=== PATIENT | female | born 1935 | race Caucasian/White ===

== ENCOUNTER 2022-01-25 18:22 | Inpatient (IN) | payer MEDICARE, BC ==
[2022-01-25 19:45] LABS: #Basophils 0.1 10x3/uL (0.0-0.2); #Eosinphils 0.3 10x3/uL (0.0-0.5); #Neutrophils 7.5 10x3/uL (1.5-8.4); %Basophils 0.9 % (0.0-2.0); %Eosinophils 2.7 % (0.0-6.0); %Lymphocytes 20.8 % (18.0-47.0); %Monocytes 9.1 % (0.0-10.0); Bilirubin Neg (Negative); Blood, Urine Negative (Negative); Clarity Clear (Clear); Glucose, Urine (Dipstick) Normal (Negative); Hemoglobin 13.5 g/dL (12.0-15.5); Ketone, Urine Negative (Negative); Leukocyte 100 (Negative); Mean Corpuscular HGB CONC 32.6 g/dL (32.0-36.0); Mean Corpuscular Hemoglobin 29.7 pg (27.0-33.0); Mean Corpuscular Volume 91.2 fl (81.6-98.3); Mean Platelet Volume 10.6 fl (7.4-10.4); Nitrite Negative (Negative); Platelet Count 288 10x3/uL (150-450); Protein, Urine (Dipstick) 15 mg/dl (Neg-Trace); RBC Distribution Width 13.2 % (11.5-14.5); Red Blood Cell (RBC) Count 4.54 10x6/uL (3.90-5.03); Urobilinogen Normal mg/dL (Less than 2); White Blood Cell (WBC) Count 11.4 10x3/uL (3.5-10.5)
[2022-01-25 19:51] LABS: Bacteria/HPF 3+ HPF (None Seen); RBC/HPF 0-3 HPF (0-3); Renal Epithelial 0-3 HPF (None Seen); Squamous Epithelial 0-3 HPF (0-3); WBC/HPF 21-50 HPF (0-3)
[2022-01-25 19:59] LABS: ALT (SGPT) 9 U/L (8-55); AST (SGOT) 14 U/L (5-34); Albumin 4.3 g/dL (3.4-4.8); Alkaline Phosphatase 73 U/L (40-110); Anion Gap 17 mmol/L (10-20); BUN (Urea Nitrogen) 50 mg/dL (9.8-20.1); Bilirubin, Total 0.3 mg/dL (0.2-1.2); Calc. Creatinine Clearance 0 mL/min (70-130); Calcium 9.9 mg/dL (7.8-10.44); Carbon Dioxide 21 mmol/L (23-31); Chloride 107 mmol/L (98-107); Estimated GFR 32; Globulin 3.4 g/dL (2.4-3.5); Glucose 138 mg/dL (83-110); Potassium 5.2 mmol/L (3.5-5.1); Protein, Total 7.7 g/dL (5.8-8.1); Sodium 140 mmol/L (136-145)
[2022-01-25] MEDS ORDERED: cefTRIAXone\\ROCEPHIN 1 GM VIAL ONE (20:47)
[2022-01-25] MEDS ORDERED: Senokot S 8.6-50 MG TAB PO PRN (21:40)
[2022-01-25] MEDS ORDERED: Ondansetron PF 4 MG/2 ML Vial IVP PRN (21:40)
[2022-01-25] MEDS ORDERED: Guaifenesin DM 100-10/5 ML UDCUP PO PRN (21:40)
[2022-01-25] MEDS ORDERED: Acetaminophen 325 MG TAB PO PRN (21:40)
[2022-01-25] MEDS ORDERED: Calcium Carbonate 500 MG ChewTAB PO PRN (21:40)
[2022-01-25] MEDS ORDERED: clonazePAM 0.5 MG TAB PO PRN (21:43)
[2022-01-25] MEDS ORDERED: Sodium Chloride 0.45% 500 ML IV SCH (21:45)
[2022-01-25 23:28] LABS: Troponin I 0.011 ng/mL (< 0.028)
[2022-01-26 02:51] LABS: Lactic Acid 0.9 mmol/L (0.5-2.2)
[2022-01-26 02:53] VITALS: BMI 30.2
[2022-01-26 04:49] LABS: #Basophils 0.1 10x3/uL (0.0-0.2); #Eosinphils 0.3 10x3/uL (0.0-0.5); #Monocytes 1.1 10x3/uL (0.0-1.1); #Neutrophils 5.7 10x3/uL (1.5-8.4); %Basophils 0.6 % (0.0-2.0); %Eosinophils 3.4 % (0.0-6.0); %Lymphocytes 27.8 % (18.0-47.0); %Monocytes 10.8 % (0.0-10.0); %Neutrophils 56.9 % (40.0-75.0); Hemoglobin 11.1 g/dL (12.0-15.5); Mean Corpuscular Hemoglobin 29.6 pg (27.0-33.0); Mean Corpuscular Volume 89.6 fl (81.6-98.3); Mean Platelet Volume 10.4 fl (7.4-10.4); Platelet Count 229 10x3/uL (150-450); RBC Distribution Width 13.2 % (11.5-14.5); Red Blood Cell (RBC) Count 3.75 10x6/uL (3.90-5.03)
[2022-01-26 05:02] LABS: Anion Gap 14 mmol/L (10-20); BUN (Urea Nitrogen) 46 mg/dL (9.8-20.1); Calc. Creatinine Clearance 40 mL/min (70-130); Calcium 9.2 mg/dL (7.8-10.44); Carbon Dioxide 20 mmol/L (23-31); Chloride 112 mmol/L (98-107); Estimated GFR 36; Glucose 119 mg/dL (83-110); Magnesium 1.6 mg/dL (1.6-2.6); Potassium 5.4 mmol/L (3.5-5.1); Sodium 141 mmol/L (136-145)
[2022-01-26] MEDS ORDERED: Levothyroxine Sodium 125 MCG TAB PO SCH (06:00)
[2022-01-26] MEDS: Alogliptin 25 MG TAB PO SCH (08:55)
[2022-01-26] MEDS: Famotidine 20 MG TAB PO SCH ×2 (08:55→20:50)
[2022-01-26] MEDS: Clopidogrel Bisulfate 75 MG TAB PO SCH (08:55)
[2022-01-26] MEDS: Escitalopram Oxalate 10 mg Tablet PO SCH (08:55)
[2022-01-26] MEDS: Aspirin 81 mg Enteric Coated Tablet PO SCH (08:55)
[2022-01-26] MEDS: Liothyronine Sodium 5 MCG TAB PO SCH (08:56)
[2022-01-26] MEDS: Amlodipine 10 MG TAB PO SCH (08:56)
[2022-01-26] MEDS: Heparin 5,000 UNITS/ML VIAL SC SCH ×2 (08:59→20:55)
[2022-01-26] MEDS ORDERED: Metoprolol Tartrate 25 MG TAB PO SCH (09:00)
[2022-01-26] MEDS ORDERED: Losartan Potassium 50 MG TAB PO SCH (09:00)
[2022-01-26] MEDS ORDERED: hydrALAZINE 20 MG/ML VIAL SLOW IVP PRN (13:38)
[2022-01-26] MEDS ORDERED: Sodium Chloride 0.9% 1,000 ML IV SCH (14:00)
[2022-01-26] MEDS ORDERED: Dextrose 5% in Water 1,000 ML IV PRN (14:05)
[2022-01-26] MEDS ORDERED: Insulin Regular 300 UNITS/3 ML VIAL SC PRN ×2 (14:05)
[2022-01-26] MEDS ORDERED: Dextrose 50% Abboject 50 ML SYRINGE SLOW IVP PRN (14:05)
[2022-01-26 16:25] LABS: Potassium 5.8 mmol/L (3.5-5.1)
[2022-01-26] MEDS ORDERED: LOKELMA 10 GM PACKET PO SCH (16:30)
[2022-01-26] MEDS: hydrALAZINE 25 MG TAB PO SCH ×2 (16:59→20:56)
[2022-01-26] MEDS ORDERED: Insulin Regular 300 UNITS/3 ML VIAL IVP SCH (17:00)
[2022-01-26] MEDS ORDERED: Dextrose 50% Abboject 50 ML SYRINGE SLOW IVP SCH (17:00)
[2022-01-26 20:11] LABS: Potassium 5.6 mmol/L (3.5-5.1)
[2022-01-26] MEDS: cefTRIAXone\\ROCEPHIN 1 GM in Sodium Chloride 0.9% 100 ML IVPB SCH (20:50)
[2022-01-26] MEDS: LOKELMA 10 GM PACKET PO SCH (20:50)
[2022-01-26] MEDS ORDERED: Enoxaparin Sodium 40 MG/0.4 ML SYRINGE SC SCH (21:00)
[2022-01-27 04:20] LABS: #Basophils 0.1 10x3/uL (0.0-0.2); #Eosinphils 0.4 10x3/uL (0.0-0.5); #Monocytes 0.8 10x3/uL (0.0-1.1); #Neutrophils 3.8 10x3/uL (1.5-8.4); %Basophils 0.8 % (0.0-2.0); %Eosinophils 4.8 % (0.0-6.0); %Lymphocytes 33.6 % (18.0-47.0); %Monocytes 10.9 % (0.0-10.0); %Neutrophils 49.4 % (40.0-75.0); Mean Corpuscular HGB CONC 32.7 g/dL (32.0-36.0); Mean Corpuscular Hemoglobin 29.5 pg (27.0-33.0); Mean Corpuscular Volume 90.1 fl (81.6-98.3); Mean Platelet Volume 10.6 fl (7.4-10.4); Platelet Count 225 10x3/uL (150-450); RBC Distribution Width 13.2 % (11.5-14.5); Red Blood Cell (RBC) Count 3.73 10x6/uL (3.90-5.03); White Blood Cell (WBC) Count 7.7 10x3/uL (3.5-10.5)
[2022-01-27 04:47] LABS: ALT (SGPT) 9 U/L (8-55); AST (SGOT) 13 U/L (5-34); Albumin 3.4 g/dL (3.4-4.8); Alkaline Phosphatase 54 U/L (40-110); Anion Gap 14 mmol/L (10-20); BUN (Urea Nitrogen) 42 mg/dL (9.8-20.1); Bilirubin, Total 0.2 mg/dL (0.2-1.2); Calc. Creatinine Clearance 36 mL/min (70-130); Calcium 8.8 mg/dL (7.8-10.44); Carbon Dioxide 21 mmol/L (23-31); Chloride 110 mmol/L (98-107); Estimated GFR 32; Globulin 2.8 g/dL (2.4-3.5); Glucose 110 mg/dL (83-110); Magnesium 1.5 mg/dL (1.6-2.6); Phosphorus 3.8 mg/dL (2.3-4.7); Protein, Total 6.2 g/dL (5.8-8.1); Sodium 140 mmol/L (136-145)
[2022-01-27] MEDS: Levothyroxine Sodium 112 MCG TAB PO SCH (05:31)
[2022-01-27] MEDS ORDERED: Magnesium Sulfate 4 GM in Sodium Chloride 0.9% 250 ML 250 ML IVPB ONE (07:19)
[2022-01-27] MEDS: Alogliptin 25 MG TAB PO SCH (08:50)
[2022-01-27] MEDS: Escitalopram Oxalate 10 mg Tablet PO SCH (08:50)
[2022-01-27] MEDS: Liothyronine Sodium 5 MCG TAB PO SCH (08:50)
[2022-01-27] MEDS: hydrALAZINE 25 MG TAB PO SCH ×3 (08:51→20:30)
[2022-01-27] MEDS: Magnesium 2 GM/50 ML(in water) 2 GM in Premix Bag 1 BAG IVPB SCH ×2 (08:51→12:40)
[2022-01-27] MEDS: Aspirin 81 mg Enteric Coated Tablet PO SCH (08:55)
[2022-01-27] MEDS: Clopidogrel Bisulfate 75 MG TAB PO SCH (08:56)
[2022-01-27] MEDS: Amlodipine 10 MG TAB PO SCH (08:56)
[2022-01-27] MEDS: LOKELMA 10 GM PACKET PO SCH (09:03)
[2022-01-27] MEDS: Heparin 5,000 UNITS/ML VIAL SC SCH ×2 (09:03→20:24)
[2022-01-27] MEDS: cefTRIAXone\\ROCEPHIN 1 GM in Sodium Chloride 0.9% 100 ML IVPB SCH (20:24)
[2022-01-27] MEDS ORDERED: Famotidine 20 MG TAB PO SCH (21:00)
[2022-01-28 04:46] LABS: #Basophils 0.1 10x3/uL (0.0-0.2); #Eosinphils 0.4 10x3/uL (0.0-0.5); #Monocytes 1.1 10x3/uL (0.0-1.1); #Neutrophils 5.4 10x3/uL (1.5-8.4); %Basophils 0.6 % (0.0-2.0); %Eosinophils 4.3 % (0.0-6.0); %Lymphocytes 22.3 % (18.0-47.0); %Neutrophils 60.5 % (40.0-75.0); Hemoglobin 10.6 g/dL (12.0-15.5); Mean Corpuscular HGB CONC 32.8 g/dL (32.0-36.0); Mean Corpuscular Hemoglobin 29.9 pg (27.0-33.0); Mean Corpuscular Volume 91.2 fl (81.6-98.3); Mean Platelet Volume 10.7 fl (7.4-10.4); Platelet Count 218 10x3/uL (150-450); RBC Distribution Width 13.1 % (11.5-14.5); Red Blood Cell (RBC) Count 3.54 10x6/uL (3.90-5.03); White Blood Cell (WBC) Count 8.8 10x3/uL (3.5-10.5)
[2022-01-28 04:53] LABS: ALT (SGPT) 9 U/L (8-55); AST (SGOT) 12 U/L (5-34); Albumin 3.2 g/dL (3.4-4.8); Alkaline Phosphatase 60 U/L (40-110); Anion Gap 14 mmol/L (10-20); BUN (Urea Nitrogen) 37 mg/dL (9.8-20.1); Bilirubin, Total 0.1 mg/dL (0.2-1.2); Calc. Creatinine Clearance 36 mL/min (70-130); Calcium 8.6 mg/dL (7.8-10.44); Carbon Dioxide 22 mmol/L (23-31); Chloride 110 mmol/L (98-107); Estimated GFR 32; Globulin 2.8 g/dL (2.4-3.5); Glucose 193 mg/dL (83-110); Magnesium 2.4 mg/dL (1.6-2.6); Potassium 4.6 mmol/L (3.5-5.1); Sodium 141 mmol/L (136-145)
[2022-01-28] MEDS: Levothyroxine Sodium 112 MCG TAB PO SCH (05:06)
[2022-01-28] MEDS: Escitalopram Oxalate 10 mg Tablet PO SCH (09:56)
[2022-01-28] MEDS: Alogliptin 25 MG TAB PO SCH (09:57)
[2022-01-28] MEDS: Clopidogrel Bisulfate 75 MG TAB PO SCH (09:57)
[2022-01-28] MEDS: hydrALAZINE 25 MG TAB PO SCH (09:58)
[2022-01-28] MEDS: Amlodipine 10 MG TAB PO SCH (09:58)
[2022-01-28] MEDS: Heparin 5,000 UNITS/ML VIAL SC SCH (10:07)
[2022-01-28] MEDS: Aspirin 81 mg Enteric Coated Tablet PO SCH (10:07)
[2022-01-28 11:54] VITALS: BP 175/79; TEMP 98.2
== END 2022-01-28 11:10 | disposition home health service (06) | DRG 690 ==
LOC: CSHERS 18:22 → CSHTELE 22:28 → OBSVTOIN 01-27 10:26
PROVIDERS: ADMIT Student in an Organized Health Care Education/Training Program; ATTEND Internal Medicine
DX: N39.0 Urinary tract infection, site not specified (principal); K50.90 Crohn's disease, unspecified, without complications; E87.2 Acidosis; N17.9 Acute kidney failure, unspecified; I13.0 Hypertensive heart and chronic kidney disease with heart failure and stage 1 through stage 4 chronic kidney disease, or unspecified chronic kidney disease; E78.5 Hyperlipidemia, unspecified; F41.9 Anxiety disorder, unspecified; E03.9 Hypothyroidism, unspecified; I25.10 Atherosclerotic heart disease of native coronary artery without angina pectoris; F32.A Depression, unspecified; R53.81 Other malaise; E87.5 Hyperkalemia; R25.1 Tremor, unspecified; N18.30 Chronic kidney disease, stage 3 unspecified; E11.22 Type 2 diabetes mellitus with diabetic chronic kidney disease; E11.65 Type 2 diabetes mellitus with hyperglycemia; E86.0 Dehydration; I50.9 Heart failure, unspecified; E66.9 Obesity, unspecified; D63.1 Anemia in chronic kidney disease; B96.20 Unspecified Escherichia coli [E. coli] as the cause of diseases classified elsewhere; G31.9 Degenerative disease of nervous system, unspecified; G70.00 Myasthenia gravis without (acute) exacerbation; Z20.822 Contact with and (suspected) exposure to COVID-19; Z88.5 Allergy status to narcotic agent; Z90.710 Acquired absence of both cervix and uterus; Z95.5 Presence of coronary angioplasty implant and graft; Z85.3 Personal history of malignant neoplasm of breast; Z88.1 Allergy status to other antibiotic agents; Z88.0 Allergy status to penicillin; Z88.8 Allergy status to other drugs, medicaments and biological substances; Z79.899 Other long term (current) drug therapy; Z79.82 Long term (current) use of aspirin; Z79.890 Hormone replacement therapy; Z90.89 Acquired absence of other organs; Z68.30 Body mass index [BMI] 30.0-30.9, adult; Z90.10 Acquired absence of unspecified breast and nipple; Z95.1 Presence of aortocoronary bypass graft; Z98.890 Other specified postprocedural states; Z82.3 Family history of stroke
CPT/HCPCS: 36415; 36416; 70450; 80048; 80053; 81003; 81015; 83605; 83690; 83735; 83880; 84100; 84145; 84439; 84443; 84484; 85025; 87040; 87077; 87086; 87186; 93005; 96365; 96372; 96375; 96376; G0378; J0696; J1644; J3475; J3490; U0003; U0005

== ENCOUNTER 2022-02-09 19:25 | Inpatient (IN) | payer MEDICARE, BC ==
[2022-02-09] MEDS ORDERED: Magnesium 2 GM/50 ML BAG (IN WATER) ONE (19:44)
[2022-02-09 20:28] LABS: Actual Bicarbonate (HCO3v) 23 mEq/L (22-28); Base Excess -3.5 mEq/L (-2.0 to +3.0); Chloride (VBG) 109 mmol/L (98-106); Hemoglobin (Hb) 11.2 g/dL (11.7-16.1); Potassium (VBG) 4.08 mmol/L (3.70-5.30); Puncture Site Other Site; Sodium 136.2 mmol/L (133-146); pH (venous) 7.32 (7.32-7.43)
[2022-02-09 20:30] LABS: D-Dimer Test 1.13 mg/L FEU (0.19-0.50); PTT 25.7 sec (22.0-33.0); Prothrombin Time 10.5 sec (9.5-12.1)
[2022-02-09 20:32] LABS: ALT (SGPT) 11 U/L (8-55); AST (SGOT) 16 U/L (5-34); Albumin 3.3 g/dL (3.4-4.8); Alkaline Phosphatase 52 U/L (40-110); Anion Gap 13 mmol/L (10-20); BUN (Urea Nitrogen) 19 mg/dL (9.8-20.1); Bilirubin, Total 0.3 mg/dL (0.2-1.2); Calc. Creatinine Clearance 0 mL/min (70-130); Calcium 8.2 mg/dL (7.8-10.44); Carbon Dioxide 21 mmol/L (23-31); Chloride 108 mmol/L (98-107); Estimated GFR 39; Globulin 2.6 g/dL (2.4-3.5); Glucose 154 mg/dL (83-110); Magnesium 1.8 mg/dL (1.6-2.6); Potassium 4.2 mmol/L (3.5-5.1); Protein, Total 5.9 g/dL (5.8-8.1); Sodium 138 mmol/L (136-145)
[2022-02-09 20:35] LABS: Hemoglobin 10.3 g/dL (12.0-15.5); Mean Corpuscular HGB CONC 33.1 g/dL (32.0-36.0); Mean Corpuscular Hemoglobin 30.2 pg (27.0-33.0); Mean Corpuscular Volume 91.2 fl (81.6-98.3); Mean Platelet Volume 10.6 fl (7.4-10.4); Platelet Count 186 10x3/uL (150-450); RBC Distribution Width 13.6 % (11.5-14.5); Red Blood Cell (RBC) Count 3.41 10x6/uL (3.90-5.03)
[2022-02-09 20:37] LABS: CK (CPK) 28 U/L (29-168); CRP (Inflammatory) Less than 0.50 mg/dL (= or < 0.5)
[2022-02-09 20:40] LABS: SARS-CoV-2 NAA Rapid Test DETECTED (NotDetected)
[2022-02-09] MEDS ORDERED: DOPamine 400 MG/D5W 250 ML 250 ML ONE (20:40)
[2022-02-09 21:13] LABS: Band 16 % (5-11); Eosinophils 2 % (0-10); Monocytes 15 % (0-10)
[2022-02-09 21:15] LABS: Lymphocytes 7 % (21-51); Platelet Morphology Comment Appears Adequate
[2022-02-09 21:17] LABS: MDiff Complete? YES; Neutrophil 58 % (42-75); RBC Morphology Normal
[2022-02-09] MEDS ORDERED: Fentanyl 100 MCG/2 ML VIAL ONE ×2 (21:29→22:04)
[2022-02-09 22:54] LABS: Bilirubin Neg (Negative); Blood, Urine 25 (Negative); Clarity Clear (Clear); Glucose, Urine (Dipstick) Normal (Negative); Ketone, Urine Negative (Negative); Leukocyte Negative (Negative); Nitrite Negative (Negative); Protein, Urine (Dipstick) 15 mg/dl (Neg-Trace); Urobilinogen Normal mg/dL (Less than 2)
[2022-02-09] MEDS ORDERED: cefTRIAXone\\ROCEPHIN 2 GM VIAL ONE (22:55)
[2022-02-09 23:03] LABS: Transitional Epithelial 0-3 HPF (None Seen)
[2022-02-09 23:04] LABS: Bacteria/HPF Rare-Few HPF (None Seen)
[2022-02-09] MEDS ORDERED: Ondansetron ODT 4 MG TAB PO PRN (23:09)
[2022-02-09 23:12] LABS: Lactic Acid 2.3 mmol/L (0.5-2.2)
[2022-02-10] MEDS: Sodium Chloride 0.9% 1,000 ML IV SCH ×2 (00:18→19:09)
[2022-02-10] MEDS: clonazePAM 0.5 MG TAB PO PRN ×2 (00:32→11:04)
[2022-02-10] MEDS ORDERED: DOPamine 400 MG/D5W 250 ML 250 ML ONE (01:00)
[2022-02-10] MEDS ORDERED: DOPamine 400 MG/D5W 250 ML 250 ML IVPB SCH (01:00)
[2022-02-10] MEDS: Ondansetron PF 4 MG/2 ML Vial IVP PRN (01:30)
[2022-02-10] MEDS ORDERED: Cefepime 1 GM in Sodium Chloride 0.9% 100 ML IVPB SCH (04:00)
[2022-02-10] MEDS ORDERED: Vancomycin HCl 500 MG in Sodium Chloride 0.9% 100 ML IVPB SCH (04:00)
[2022-02-10 04:42] LABS: Anion Gap 19 mmol/L (10-20); BUN (Urea Nitrogen) 24 mg/dL (9.8-20.1); Calc. Creatinine Clearance 28 mL/min (70-130); Calcium 8.2 mg/dL (7.8-10.44); Carbon Dioxide 18 mmol/L (23-31); Chloride 108 mmol/L (98-107); Estimated GFR 24; Glucose 201 mg/dL (83-110); Potassium 5.5 mmol/L (3.5-5.1); Sodium 139 mmol/L (136-145)
[2022-02-10] MEDS: Levothyroxine Sodium 112 MCG TAB PO SCH (04:56)
[2022-02-10 05:32] LABS: Hemoglobin 10.4 g/dL (12.0-15.5); Mean Corpuscular HGB CONC 33.2 g/dL (32.0-36.0); Mean Corpuscular Hemoglobin 29.7 pg (27.0-33.0); Mean Corpuscular Volume 89.4 fl (81.6-98.3); Mean Platelet Volume 10.4 fl (7.4-10.4); Platelet Count 179 10x3/uL (150-450); RBC Distribution Width 13.6 % (11.5-14.5); White Blood Cell (WBC) Count 10.2 10x3/uL (3.5-10.5)
[2022-02-10] MEDS ORDERED: Vancomycin 1 GM in Premix Bag 1 BAG IVPB PRN (05:47)
[2022-02-10 06:27] LABS: MDiff Complete? YES; Platelet Morphology Comment Appears Adequate
[2022-02-10 06:29] LABS: Band 11 % (5-11); Lymphocytes 8 % (21-51); Monocytes 20 % (0-10); Neutrophil 59 % (42-75); Reactive Lymphocytes 2 % (0-10)
[2022-02-10] MEDS ORDERED: Clopidogrel Bisulfate 75 MG TAB PO SCH (09:00)
[2022-02-10] MEDS ORDERED: Fluticasone Propionate Nasal Spray 16 gm Bottle NASAL SCH (09:00)
[2022-02-10] MEDS: Zinc Sulfate 220 MG CAP PO SCH (09:14)
[2022-02-10] MEDS: Escitalopram Oxalate 10 mg Tablet PO SCH (09:14)
[2022-02-10] MEDS: Alogliptin 6.25 MG TAB PO SCH (09:14)
[2022-02-10] MEDS: Ascorbic Acid 500 mg Chewable Tablet PO SCH (09:15)
[2022-02-10] MEDS: Cholecalciferol 1,000 UNITS (25 MCG) TAB PO SCH (09:15)
[2022-02-10] MEDS: Aspirin 81 mg Enteric Coated Tablet PO SCH (09:15)
[2022-02-10] MEDS: Pioglitazone HCl 15 MG TAB PO SCH (09:17)
[2022-02-10 10:01] LABS: Anion Gap 11 mmol/L (10-20); BUN (Urea Nitrogen) 25 mg/dL (9.8-20.1); Calc. Creatinine Clearance 32 mL/min (70-130); Calcium 8.1 mg/dL (7.8-10.44); Carbon Dioxide 23 mmol/L (23-31); Chloride 109 mmol/L (98-107); Estimated GFR 27; Glucose 96 mg/dL (83-110); Potassium 4.5 mmol/L (3.5-5.1); Sodium 138 mmol/L (136-145)
[2022-02-10] MEDS ORDERED: (RENAL) NIRMATRELVIR 150 MG/RITONAVIR 100 MG TABLET PO SCH (12:30)
[2022-02-10 13:38] LABS: Hemoglobin A1c 6.2 % (4.0-6.0)
[2022-02-10 13:59] LABS: Anion Gap 13 mmol/L (10-20); BUN (Urea Nitrogen) 26 mg/dL (9.8-20.1); Calc. Creatinine Clearance 31 mL/min (70-130); Calcium 8.4 mg/dL (7.8-10.44); Carbon Dioxide 22 mmol/L (23-31); Chloride 107 mmol/L (98-107); Estimated GFR 26; Glucose 116 mg/dL (83-110); Potassium 4.4 mmol/L (3.5-5.1); Sodium 138 mmol/L (136-145)
[2022-02-10] MEDS: (RENAL) NIRMATRELVIR 150 MG/RITONAVIR 100 MG TABLET PO SCH (21:15)
[2022-02-11] MEDS ORDERED: Vancomycin HCl 1 GM in Sodium Chloride 0.9% 250 ML 250 ML IVPB SCH ×2 (04:00→05:15)
[2022-02-11] MEDS: Cefepime 1 GM in Sodium Chloride 0.9% 100 ML IVPB SCH (04:25)
[2022-02-11 05:02] LABS: Vancomycin, Trough 10.1 ug/mL
[2022-02-11 05:03] LABS: ALT (SGPT) 17 U/L (8-55); AST (SGOT) 20 U/L (5-34); Albumin 3.2 g/dL (3.4-4.8); Alkaline Phosphatase 49 U/L (40-110); Anion Gap 15 mmol/L (10-20); BUN (Urea Nitrogen) 30 mg/dL (9.8-20.1); Bilirubin, Total 0.3 mg/dL (0.2-1.2); Calc. Creatinine Clearance 31 mL/min (70-130); Calcium 8.2 mg/dL (7.8-10.44); Carbon Dioxide 21 mmol/L (23-31); Cardiac Risk 4.4 (Less than 4.5); Chloride 105 mmol/L (98-107); Cholesterol 160 mg/dl (< 200 Desired); Estimated GFR 27; Globulin 2.8 g/dL (2.4-3.5); Glucose 158 mg/dL (83-110); HDL Cholesterol 36 mg/dL (>60 Neg Risk); LDL Cholesterol, Calculated 105 mg/dL; Magnesium 1.5 mg/dL (1.6-2.6); Potassium 4.7 mmol/L (3.5-5.1); Sodium 136 mmol/L (136-145); Triglycerides 95 mg/dL (Less than 150)
[2022-02-11 05:05] LABS: Hemoglobin 10.3 g/dL (12.0-15.5); Mean Corpuscular HGB CONC 32.5 g/dL (32.0-36.0); Mean Corpuscular Hemoglobin 29.8 pg (27.0-33.0); Mean Corpuscular Volume 91.6 fl (81.6-98.3); Platelet Count 164 10x3/uL (150-450); RBC Distribution Width 13.6 % (11.5-14.5); Red Blood Cell (RBC) Count 3.46 10x6/uL (3.90-5.03); Troponin I 0.401 ng/mL (< 0.028); White Blood Cell (WBC) Count 8.3 10x3/uL (3.5-10.5)
[2022-02-11] MEDS: Levothyroxine Sodium 112 MCG TAB PO SCH (05:44)
[2022-02-11 05:51] VITALS: BMI 31.5
[2022-02-11 06:00] LABS: MDiff Complete? YES; Platelet Morphology Comment Appears Adequate
[2022-02-11 06:13] LABS: Band 7 % (5-11); Lymphocytes 11 % (21-51); Monocytes 11 % (0-10); Neutrophil 69 % (42-75); Reactive Lymphocytes 1 % (0-10)
[2022-02-11] MEDS: Zinc Sulfate 220 MG CAP PO SCH (08:08)
[2022-02-11] MEDS: Escitalopram Oxalate 10 mg Tablet PO SCH (08:08)
[2022-02-11] MEDS: Aspirin 81 mg Enteric Coated Tablet PO SCH (08:08)
[2022-02-11] MEDS: Ascorbic Acid 500 mg Chewable Tablet PO SCH (08:08)
[2022-02-11] MEDS: (RENAL) NIRMATRELVIR 150 MG/RITONAVIR 100 MG TABLET PO SCH ×2 (08:09→21:18)
[2022-02-11] MEDS: Pioglitazone HCl 15 MG TAB PO SCH (08:09)
[2022-02-11] MEDS: Alogliptin 6.25 MG TAB PO SCH (08:09)
[2022-02-11] MEDS: Cholecalciferol 1,000 UNITS (25 MCG) TAB PO SCH (08:09)
[2022-02-11] MEDS: Ondansetron PF 4 MG/2 ML Vial IVP PRN (08:29)
[2022-02-11] MEDS: Magnesium 2 GM/50 ML(in water) 2 GM in Premix Bag 1 BAG IVPB SCH ×2 (12:18→13:30)
[2022-02-11] MEDS ORDERED: Vancomycin 1.5 GRAM/300 ML BAG IVPB SCH (19:00)
[2022-02-11] MEDS ORDERED: clonazePAM 0.5 MG TAB PO PRN (20:22)
[2022-02-11] MEDS: Acetaminophen 325 MG TAB PO PRN (21:18)
[2022-02-12] MEDS: Cefepime 1 GM in Sodium Chloride 0.9% 100 ML IVPB SCH (03:51)
[2022-02-12 04:21] LABS: #Monocytes 0.8 10x3/uL (0.0-1.1); #Neutrophils 3.1 10x3/uL (1.5-8.4); %Basophils 0.2 % (0.0-2.0); %Eosinophils 0.5 % (0.0-6.0); %Lymphocytes 29.1 % (18.0-47.0); %Monocytes 14.4 % (0.0-10.0); %Neutrophils 55.1 % (40.0-75.0); Hemoglobin 10.3 g/dL (12.0-15.5); Mean Corpuscular HGB CONC 32.7 g/dL (32.0-36.0); Mean Corpuscular Hemoglobin 29.3 pg (27.0-33.0); Mean Corpuscular Volume 89.7 fl (81.6-98.3); Mean Platelet Volume 11.4 fl (7.4-10.4); Platelet Count 140 10x3/uL (150-450); RBC Distribution Width 13.2 % (11.5-14.5); Red Blood Cell (RBC) Count 3.51 10x6/uL (3.90-5.03); White Blood Cell (WBC) Count 5.6 10x3/uL (3.5-10.5)
[2022-02-12 04:37] LABS: ALT (SGPT) 13 U/L (8-55); AST (SGOT) 20 U/L (5-34); Alkaline Phosphatase 44 U/L (40-110); Anion Gap 14 mmol/L (10-20); BUN (Urea Nitrogen) 31 mg/dL (9.8-20.1); Bilirubin, Total 0.4 mg/dL (0.2-1.2); Calc. Creatinine Clearance 35 mL/min (70-130); Calcium 8.2 mg/dL (7.8-10.44); Carbon Dioxide 22 mmol/L (23-31); Chloride 103 mmol/L (98-107); Estimated GFR 31; Globulin 2.9 g/dL (2.4-3.5); Glucose 95 mg/dL (83-110); Magnesium 2.4 mg/dL (1.6-2.6); Potassium 4.5 mmol/L (3.5-5.1); Protein, Total 5.9 g/dL (5.8-8.1); Sodium 134 mmol/L (136-145)
[2022-02-12] MEDS ORDERED: Vancomycin HCl 750 MG in Sodium Chloride 0.9% 250 ML 250 ML IVPB SCH (06:00)
[2022-02-12] MEDS: Levothyroxine Sodium 112 MCG TAB PO SCH (06:20)
[2022-02-12] MEDS: Zinc Sulfate 220 MG CAP PO SCH (08:43)
[2022-02-12] MEDS: Cholecalciferol 1,000 UNITS (25 MCG) TAB PO SCH (08:43)
[2022-02-12] MEDS: (RENAL) NIRMATRELVIR 150 MG/RITONAVIR 100 MG TABLET PO SCH ×2 (08:43→20:41)
[2022-02-12] MEDS: Escitalopram Oxalate 10 mg Tablet PO SCH (08:44)
[2022-02-12] MEDS: Alogliptin 6.25 MG TAB PO SCH (08:44)
[2022-02-12] MEDS: Aspirin 81 mg Enteric Coated Tablet PO SCH (08:44)
[2022-02-12] MEDS: Ascorbic Acid 500 mg Chewable Tablet PO SCH (08:44)
[2022-02-12] MEDS: Pioglitazone HCl 15 MG TAB PO SCH (08:44)
[2022-02-12] MEDS: Acetaminophen 325 MG TAB PO PRN (10:49)
[2022-02-12] MEDS: Liothyronine Sodium 5 MCG TAB PO SCH (13:30)
[2022-02-12] MEDS: Lorazepam 0.5 MG TAB PO PRN (18:55)
[2022-02-13] MEDS: Cefepime 1 GM in Sodium Chloride 0.9% 100 ML IVPB SCH ×2 (03:25→17:05)
[2022-02-13 04:38] LABS: #Eosinphils 0.1 10x3/uL (0.0-0.5); #Monocytes 0.7 10x3/uL (0.0-1.1); #Neutrophils 2.5 10x3/uL (1.5-8.4); %Basophils 0.4 % (0.0-2.0); %Eosinophils 1.9 % (0.0-6.0); %Lymphocytes 38.3 % (18.0-47.0); %Monocytes 12.9 % (0.0-10.0); %Neutrophils 45.9 % (40.0-75.0); Mean Corpuscular HGB CONC 33.2 g/dL (32.0-36.0); Mean Corpuscular Hemoglobin 29.9 pg (27.0-33.0); Mean Corpuscular Volume 89.9 fl (81.6-98.3); Mean Platelet Volume 10.7 fl (7.4-10.4); Platelet Count 139 10x3/uL (150-450); RBC Distribution Width 13.2 % (11.5-14.5); Red Blood Cell (RBC) Count 3.68 10x6/uL (3.90-5.03); White Blood Cell (WBC) Count 5.3 10x3/uL (3.5-10.5)
[2022-02-13 04:58] LABS: Vancomycin, Random 13.5 ug/mL (See Comment)
[2022-02-13 04:59] LABS: ALT (SGPT) 14 U/L (8-55); AST (SGOT) 16 U/L (5-34); Albumin 3.1 g/dL (3.4-4.8); Alkaline Phosphatase 50 U/L (40-110); Anion Gap 13 mmol/L (10-20); BUN (Urea Nitrogen) 29 mg/dL (9.8-20.1); Bilirubin, Total 0.4 mg/dL (0.2-1.2); Calc. Creatinine Clearance 43 mL/min (70-130); Calcium 8.5 mg/dL (7.8-10.44); Carbon Dioxide 24 mmol/L (23-31); Chloride 106 mmol/L (98-107); Estimated GFR 38; Glucose 94 mg/dL (83-110); Potassium 4.6 mmol/L (3.5-5.1); Protein, Total 6.1 g/dL (5.8-8.1); Sodium 138 mmol/L (136-145)
[2022-02-13] MEDS: Levothyroxine Sodium 112 MCG TAB PO SCH (05:21)
[2022-02-13] MEDS: Vancomycin HCl 750 MG in Sodium Chloride 0.9% 250 ML 250 ML IVPB SCH (06:29)
[2022-02-13] MEDS ORDERED: Lidocaine 1% 20 ML MDV ONE ×2 (06:39→09:26)
[2022-02-13] MEDS ORDERED: Gentamicin 80 MG/2 ML VIAL ONE (06:39)
[2022-02-13] MEDS: Zinc Sulfate 220 MG CAP PO SCH (08:50)
[2022-02-13] MEDS: Pioglitazone HCl 15 MG TAB PO SCH (08:50)
[2022-02-13] MEDS: Cholecalciferol 1,000 UNITS (25 MCG) TAB PO SCH (08:50)
[2022-02-13] MEDS: Escitalopram Oxalate 10 mg Tablet PO SCH (08:51)
[2022-02-13] MEDS: Aspirin 81 mg Enteric Coated Tablet PO SCH (08:51)
[2022-02-13] MEDS: Alogliptin 6.25 MG TAB PO SCH (08:51)
[2022-02-13] MEDS: Ascorbic Acid 500 mg Chewable Tablet PO SCH (08:51)
[2022-02-13] MEDS: (RENAL) NIRMATRELVIR 150 MG/RITONAVIR 100 MG TABLET PO SCH ×2 (08:52→20:20)
[2022-02-13] MEDS: Liothyronine Sodium 5 MCG TAB PO SCH (08:53)
[2022-02-13] MEDS ORDERED: Fentanyl 100 MCG/2 ML VIAL ONE (10:29)
[2022-02-13] MEDS ORDERED: Midazolam HCl 2 mg/2 ml Vial ONE (10:30)
[2022-02-13] MEDS ORDERED: Iopamidol 300 61% 50 ML VIAL FS ONE (10:58)
[2022-02-13] MEDS ORDERED: hydrALAZINE 20 MG/ML VIAL SLOW IVP SCH (17:00)
[2022-02-13] MEDS: Acetaminophen 325 MG TAB PO PRN (17:55)
[2022-02-13] MEDS: Lorazepam 0.5 MG TAB PO PRN (20:18)
[2022-02-14] MEDS: Cefepime 1 GM in Sodium Chloride 0.9% 100 ML IVPB SCH ×2 (03:11→15:53)
[2022-02-14 04:43] LABS: #Eosinphils 0.1 10x3/uL (0.0-0.5); #Monocytes 0.8 10x3/uL (0.0-1.1); #Neutrophils 3.7 10x3/uL (1.5-8.4); %Basophils 0.1 % (0.0-2.0); %Eosinophils 1.5 % (0.0-6.0); %Lymphocytes 35.6 % (18.0-47.0); %Monocytes 11.4 % (0.0-10.0); %Neutrophils 50.6 % (40.0-75.0); Hemoglobin 11.4 g/dL (12.0-15.5); Mean Corpuscular HGB CONC 34.2 g/dL (32.0-36.0); Mean Corpuscular Hemoglobin 30.1 pg (27.0-33.0); Mean Corpuscular Volume 87.9 fl (81.6-98.3); Mean Platelet Volume 10.7 fl (7.4-10.4); Platelet Count 147 10x3/uL (150-450); Red Blood Cell (RBC) Count 3.79 10x6/uL (3.90-5.03); White Blood Cell (WBC) Count 7.4 10x3/uL (3.5-10.5)
[2022-02-14 04:51] LABS: ALT (SGPT) 12 U/L (8-55); AST (SGOT) 17 U/L (5-34); Albumin 3.1 g/dL (3.4-4.8); Alkaline Phosphatase 53 U/L (40-110); Anion Gap 16 mmol/L (10-20); BUN (Urea Nitrogen) 25 mg/dL (9.8-20.1); Bilirubin, Total 0.4 mg/dL (0.2-1.2); Calc. Creatinine Clearance 55 mL/min (70-130); Calcium 8.5 mg/dL (7.8-10.44); Carbon Dioxide 20 mmol/L (23-31); Chloride 106 mmol/L (98-107); Estimated GFR 53; Globulin 3.1 g/dL (2.4-3.5); Glucose 90 mg/dL (83-110); Magnesium 1.6 mg/dL (1.6-2.6); Potassium 4.8 mmol/L (3.5-5.1); Protein, Total 6.2 g/dL (5.8-8.1); Sodium 137 mmol/L (136-145)
[2022-02-14] MEDS: Vancomycin HCl 750 MG in Sodium Chloride 0.9% 250 ML 250 ML IVPB SCH (05:52)
[2022-02-14] MEDS: Levothyroxine Sodium 112 MCG TAB PO SCH (05:53)
[2022-02-14] MEDS: Ascorbic Acid 500 mg Chewable Tablet PO SCH (08:24)
[2022-02-14] MEDS: Zinc Sulfate 220 MG CAP PO SCH (08:24)
[2022-02-14] MEDS: Aspirin 81 mg Enteric Coated Tablet PO SCH (08:24)
[2022-02-14] MEDS: Alogliptin 6.25 MG TAB PO SCH (08:24)
[2022-02-14] MEDS: Escitalopram Oxalate 10 mg Tablet PO SCH (08:24)
[2022-02-14] MEDS: Pioglitazone HCl 15 MG TAB PO SCH (08:24)
[2022-02-14] MEDS: Cholecalciferol 1,000 UNITS (25 MCG) TAB PO SCH (08:25)
[2022-02-14] MEDS: Liothyronine Sodium 5 MCG TAB PO SCH (08:26)
[2022-02-14] MEDS: (RENAL) NIRMATRELVIR 150 MG/RITONAVIR 100 MG TABLET PO SCH ×2 (08:26→21:15)
[2022-02-14] MEDS: Acetaminophen 325 MG TAB PO PRN (08:51)
[2022-02-14] MEDS: Lorazepam 0.5 MG TAB PO PRN ×2 (12:22→21:15)
[2022-02-15] MEDS: Cefepime 1 GM in Sodium Chloride 0.9% 100 ML IVPB SCH ×2 (04:23→19:57)
[2022-02-15 04:59] LABS: ALT (SGPT) 10 U/L (8-55); AST (SGOT) 11 U/L (5-34); Alkaline Phosphatase 47 U/L (40-110); Anion Gap 13 mmol/L (10-20); BUN (Urea Nitrogen) 17 mg/dL (9.8-20.1); Bilirubin, Total 0.5 mg/dL (0.2-1.2); Calc. Creatinine Clearance 57 mL/min (70-130); Calcium 8.5 mg/dL (7.8-10.44); Carbon Dioxide 26 mmol/L (23-31); Chloride 102 mmol/L (98-107); Estimated GFR 55; Glucose 107 mg/dL (83-110); Magnesium 1.3 mg/dL (1.6-2.6); Potassium 4.2 mmol/L (3.5-5.1); Sodium 137 mmol/L (136-145)
[2022-02-15 05:06] LABS: Hemoglobin 10.8 g/dL (12.0-15.5); Mean Corpuscular HGB CONC 34.1 g/dL (32.0-36.0); Mean Corpuscular Hemoglobin 29.7 pg (27.0-33.0); Mean Corpuscular Volume 87.1 fl (81.6-98.3); Mean Platelet Volume 10.2 fl (7.4-10.4); Platelet Count 152 10x3/uL (150-450); RBC Distribution Width 12.8 % (11.5-14.5); Red Blood Cell (RBC) Count 3.64 10x6/uL (3.90-5.03)
[2022-02-15 05:13] LABS: Vancomycin, Trough 14.1 ug/mL
[2022-02-15] MEDS: Vancomycin HCl 750 MG in Sodium Chloride 0.9% 250 ML 250 ML IVPB SCH (05:53)
[2022-02-15] MEDS: Levothyroxine Sodium 112 MCG TAB PO SCH (05:53)
[2022-02-15 06:41] LABS: MDiff Complete? YES
[2022-02-15] MEDS: Lorazepam 0.5 MG TAB PO PRN ×2 (06:43→22:30)
[2022-02-15 06:48] LABS: Diff Comment (RBC Morph SCRN) NORMAL; Eosinophils 1 % (0-10); Lymphocytes 27 % (21-51); Monocytes 11 % (0-10); Neutrophil 60 % (42-75); Reactive Lymphocytes 1 % (0-10)
[2022-02-15 06:49] LABS: Platelet Morphology Comment Appears Decreased
[2022-02-15] MEDS: Cholecalciferol 1,000 UNITS (25 MCG) TAB PO SCH (08:52)
[2022-02-15] MEDS: Escitalopram Oxalate 10 mg Tablet PO SCH (08:54)
[2022-02-15] MEDS: Alogliptin 6.25 MG TAB PO SCH (08:54)
[2022-02-15] MEDS: Zinc Sulfate 220 MG CAP PO SCH (08:54)
[2022-02-15] MEDS: Aspirin 81 mg Enteric Coated Tablet PO SCH (08:54)
[2022-02-15] MEDS: Ascorbic Acid 500 mg Chewable Tablet PO SCH (08:55)
[2022-02-15] MEDS: Pioglitazone HCl 15 MG TAB PO SCH (08:55)
[2022-02-15] MEDS: (RENAL) NIRMATRELVIR 150 MG/RITONAVIR 100 MG TABLET PO SCH (08:56)
[2022-02-15] MEDS: Liothyronine Sodium 5 MCG TAB PO SCH (08:58)
[2022-02-15] MEDS ORDERED: Amlodipine 10 MG TAB PO SCH (11:00)
[2022-02-15] MEDS ORDERED: Cefepime 1 GM VIAL ONE (16:04)
[2022-02-15] MEDS ORDERED: Sodium Chloride 0.9% 100 ML ONE (16:04)
[2022-02-16 04:19] LABS: Hemoglobin 10.4 g/dL (12.0-15.5); Mean Corpuscular HGB CONC 34.2 g/dL (32.0-36.0); Mean Corpuscular Hemoglobin 30.3 pg (27.0-33.0); Mean Corpuscular Volume 88.6 fl (81.6-98.3); Mean Platelet Volume 10.2 fl (7.4-10.4); Platelet Count 165 10x3/uL (150-450); RBC Distribution Width 12.8 % (11.5-14.5); Red Blood Cell (RBC) Count 3.43 10x6/uL (3.90-5.03); White Blood Cell (WBC) Count 6.8 10x3/uL (3.5-10.5)
[2022-02-16 04:25] LABS: ALT (SGPT) Less than 6 U/L (8-55); AST (SGOT) 10 U/L (5-34); Albumin 3.1 g/dL (3.4-4.8); Alkaline Phosphatase 47 U/L (40-110); Anion Gap 13 mmol/L (10-20); BUN (Urea Nitrogen) 17 mg/dL (9.8-20.1); Bilirubin, Total 0.4 mg/dL (0.2-1.2); Calc. Creatinine Clearance 53 mL/min (70-130); Calcium 8.6 mg/dL (7.8-10.44); Carbon Dioxide 27 mmol/L (23-31); Chloride 101 mmol/L (98-107); Estimated GFR 50; Globulin 3.1 g/dL (2.4-3.5); Glucose 110 mg/dL (83-110); Magnesium 1.4 mg/dL (1.6-2.6); Potassium 4.1 mmol/L (3.5-5.1); Protein, Total 6.2 g/dL (5.8-8.1); Sodium 137 mmol/L (136-145)
[2022-02-16 04:32] LABS: MDiff Complete? YES
[2022-02-16 04:36] LABS: Band 11 % (5-11); Eosinophils 2 % (0-10); Lymphocytes 14 % (21-51); Monocytes 20 % (0-10); Neutrophil 48 % (42-75); Reactive Lymphocytes 5 % (0-10)
[2022-02-16 04:38] LABS: Platelet Morphology Comment Appears Adequate; RBC Morphology Normal
[2022-02-16] MEDS: Levothyroxine Sodium 112 MCG TAB PO SCH (05:00)
[2022-02-16] MEDS ORDERED: Magnesium Sulfate 4 GM in Sodium Chloride 0.9% 250 ML 250 ML IVPB SCH (08:00)
[2022-02-16] MEDS: Magnesium 2 GM/50 ML(in water) 2 GM in Premix Bag 1 BAG IVPB SCH ×2 (08:48→12:08)
[2022-02-16] MEDS: Alogliptin 6.25 MG TAB PO SCH (08:50)
[2022-02-16] MEDS: Escitalopram Oxalate 10 mg Tablet PO SCH (08:51)
[2022-02-16] MEDS: Ascorbic Acid 500 mg Chewable Tablet PO SCH (08:51)
[2022-02-16] MEDS: Cholecalciferol 1,000 UNITS (25 MCG) TAB PO SCH (08:51)
[2022-02-16] MEDS: Liothyronine Sodium 5 MCG TAB PO SCH (08:51)
[2022-02-16] MEDS: Aspirin 81 mg Enteric Coated Tablet PO SCH (08:51)
[2022-02-16] MEDS: Pioglitazone HCl 15 MG TAB PO SCH (08:52)
[2022-02-16] MEDS: Amlodipine 10 MG TAB PO SCH (08:52)
[2022-02-16] MEDS: clonazePAM 0.5 MG TAB PO PRN ×2 (10:49→21:23)
[2022-02-16] MEDS: Cephalexin 500 MG CAP PO SCH (21:23)
[2022-02-17 04:28] LABS: Hemoglobin 10.3 g/dL (12.0-15.5); Mean Corpuscular HGB CONC 33.8 g/dL (32.0-36.0); Mean Corpuscular Hemoglobin 29.9 pg (27.0-33.0); Mean Corpuscular Volume 88.7 fl (81.6-98.3); Mean Platelet Volume 10.2 fl (7.4-10.4); Platelet Count 195 10x3/uL (150-450); RBC Distribution Width 12.7 % (11.5-14.5); Red Blood Cell (RBC) Count 3.44 10x6/uL (3.90-5.03); White Blood Cell (WBC) Count 7.4 10x3/uL (3.5-10.5)
[2022-02-17 04:39] LABS: ALT (SGPT) Less than 6 U/L (8-55); AST (SGOT) 10 U/L (5-34); Albumin 3.1 g/dL (3.4-4.8); Alkaline Phosphatase 46 U/L (40-110); Anion Gap 12 mmol/L (10-20); BUN (Urea Nitrogen) 16 mg/dL (9.8-20.1); Bilirubin, Total 0.4 mg/dL (0.2-1.2); Calc. Creatinine Clearance 54 mL/min (70-130); Calcium 8.5 mg/dL (7.8-10.44); Carbon Dioxide 28 mmol/L (23-31); Chloride 99 mmol/L (98-107); Estimated GFR 51; Globulin 3.2 g/dL (2.4-3.5); Glucose 102 mg/dL (83-110); Magnesium 2.2 mg/dL (1.6-2.6); Potassium 3.9 mmol/L (3.5-5.1); Protein, Total 6.3 g/dL (5.8-8.1); Sodium 135 mmol/L (136-145)
[2022-02-17 04:57] LABS: MDiff Complete? YES
[2022-02-17 05:00] LABS: Band 6 % (5-11); Lymphocytes 17 % (21-51); Monocytes 12 % (0-10); Neutrophil 57 % (42-75); Reactive Lymphocytes 8 % (0-10)
[2022-02-17 05:03] LABS: Platelet Morphology Comment Appears Adequate; RBC Morphology Normal
[2022-02-17] MEDS: Levothyroxine Sodium 112 MCG TAB PO SCH (08:04)
[2022-02-17] MEDS: Acetaminophen 325 MG TAB PO PRN (08:05)
[2022-02-17] MEDS: Ascorbic Acid 500 mg Chewable Tablet PO SCH (09:07)
[2022-02-17] MEDS: Amlodipine 10 MG TAB PO SCH (09:07)
[2022-02-17] MEDS: Pioglitazone HCl 15 MG TAB PO SCH (09:07)
[2022-02-17] MEDS: Alogliptin 6.25 MG TAB PO SCH (09:07)
[2022-02-17] MEDS: Cephalexin 500 MG CAP PO SCH (09:07)
[2022-02-17] MEDS: Cholecalciferol 1,000 UNITS (25 MCG) TAB PO SCH (09:07)
[2022-02-17] MEDS: Aspirin 81 mg Enteric Coated Tablet PO SCH (09:07)
[2022-02-17] MEDS: Escitalopram Oxalate 10 mg Tablet PO SCH (09:07)
[2022-02-17] MEDS: Liothyronine Sodium 5 MCG TAB PO SCH (09:08)
[2022-02-17] MEDS ORDERED: Dicyclomine 10 MG CAP PO SCH (16:00)
[2022-02-17 16:58] VITALS: BP 162/65; TEMP 99
[2022-02-17] MEDS: clonazePAM 0.5 MG TAB PO PRN (19:16)
[2022-02-18] MEDS ORDERED: Losartan Potassium 50 MG TAB PO SCH (09:00)
== END 2022-02-17 19:15 | DRG 242 ==
LOC: CSHERS 19:25 → CSHICU 23:17 → CSHTELE 02-14 14:43
PROVIDERS: ADMIT Family Medicine; ATTEND Hospitalist
PROC: 8E0ZXY6 Isolation (ICD-10-PCS; principal; 2022-02-09)
PROC: 5A1223Z Performance of Cardiac Pacing, Continuous (ICD-10-PCS; 2022-02-09)
PROC: 02H633Z Insertion of Infusion Device into Right Atrium, Percutaneous Approach (ICD-10-PCS; 2022-02-09)
PROC: XW0DXF5 Introduction of Other New Technology Therapeutic Substance into Mouth and Pharynx, External Approach, New Technology Group 5 (ICD-10-PCS; 2022-02-10)
PROC: 0JH606Z Insertion of Pacemaker, Dual Chamber into Chest Subcutaneous Tissue and Fascia, Open Approach (ICD-10-PCS; 2022-02-13)
PROC: 02H63JZ Insertion of Pacemaker Lead into Right Atrium, Percutaneous Approach (ICD-10-PCS; 2022-02-13)
PROC: 02HK3JZ Insertion of Pacemaker Lead into Right Ventricle, Percutaneous Approach (ICD-10-PCS; 2022-02-13)
DX: I44.2 Atrioventricular block, complete (principal); I21.A1 Myocardial infarction type 2; J12.82 Pneumonia due to coronavirus disease 2019; U07.1 COVID-19; R57.0 Cardiogenic shock; J96.01 Acute respiratory failure with hypoxia; N17.9 Acute kidney failure, unspecified; I25.10 Atherosclerotic heart disease of native coronary artery without angina pectoris; E78.5 Hyperlipidemia, unspecified; I10 Essential (primary) hypertension; E03.9 Hypothyroidism, unspecified; E11.42 Type 2 diabetes mellitus with diabetic polyneuropathy; F41.9 Anxiety disorder, unspecified; I49.5 Sick sinus syndrome; F32.A Depression, unspecified; I95.9 Hypotension, unspecified; D64.9 Anemia, unspecified; D72.821 Monocytosis (symptomatic); E87.5 Hyperkalemia; Z88.8 Allergy status to other drugs, medicaments and biological substances; Z85.3 Personal history of malignant neoplasm of breast; Z88.6 Allergy status to analgesic agent; Z88.0 Allergy status to penicillin; Z79.899 Other long term (current) drug therapy; Z79.02 Long term (current) use of antithrombotics/antiplatelets; Z79.82 Long term (current) use of aspirin; Z79.890 Hormone replacement therapy; Z95.1 Presence of aortocoronary bypass graft; Z95.5 Presence of coronary angioplasty implant and graft; Z90.710 Acquired absence of both cervix and uterus; Z90.89 Acquired absence of other organs; Z87.891 Personal history of nicotine dependence; Z82.49 Family history of ischemic heart disease and other diseases of the circulatory system; Z82.3 Family history of stroke; Z83.3 Family history of diabetes mellitus; Z90.10 Acquired absence of unspecified breast and nipple; Z87.440 Personal history of urinary (tract) infections; Z86.73 Personal history of transient ischemic attack (TIA), and cerebral infarction without residual deficits
CPT/HCPCS: 33208; 36415; 36416; 36556; 51701; 71045; 80048; 80053; 80061; 80202; 81003; 81015; 82550; 82805; 83036; 83605; 83735; 83880; 84443; 84484; 85025; 85379; 85610; 85730; 86140; 87040; 87081; 87086; 92953; 93005; 93010; 93970; 94640; 94760; 96365; 96375; 99152; 99153; C1785; C1898; J0360; J0692; J0696; J1265; J1580; J2250; J2405; J3010; J3370; J3475; J3490; J7050; Q9967; U0002

== ENCOUNTER 2022-04-15 12:33 | Emergency (ER) | payer MEDICARE, BC ==
[2022-04-15 14:06] LABS: #Basophils 0.1 10x3/uL (0.0-0.2); #Eosinphils 0.1 10x3/uL (0.0-0.5); #Monocytes 0.8 10x3/uL (0.0-1.1); %Basophils 0.6 % (0.0-2.0); %Eosinophils 1.5 % (0.0-6.0); %Lymphocytes 23.2 % (18.0-47.0); %Monocytes 10.5 % (0.0-10.0); %Neutrophils 63.6 % (40.0-75.0); Hemoglobin 13.2 g/dL (12.0-15.5); Mean Corpuscular HGB CONC 33.8 g/dL (32.0-36.0); Mean Corpuscular Hemoglobin 28.9 pg (27.0-33.0); Mean Corpuscular Volume 85.6 fl (81.6-98.3); Mean Platelet Volume 10.3 fl (7.4-10.4); Platelet Count 261 10x3/uL (150-450); RBC Distribution Width 14.5 % (11.5-14.5); Red Blood Cell (RBC) Count 4.57 10x6/uL (3.90-5.03); White Blood Cell (WBC) Count 7.9 10x3/uL (3.5-10.5)
[2022-04-15 14:08] LABS: ALT (SGPT) 10 U/L (8-55); AST (SGOT) 16 U/L (5-34); Albumin 4.2 g/dL (3.4-4.8); Alkaline Phosphatase 74 U/L (40-110); Anion Gap 18 mmol/L (10-20); BUN (Urea Nitrogen) 28 mg/dL (9.8-20.1); Bilirubin, Total 0.3 mg/dL (0.2-1.2); Calc. Creatinine Clearance 0 mL/min (70-130); Calcium 9.7 mg/dL (7.8-10.44); Carbon Dioxide 21 mmol/L (23-31); Chloride 103 mmol/L (98-107); Estimated GFR 34; Glucose 143 mg/dL (83-110); Lipase 50 U/L (8-78); Potassium 3.9 mmol/L (3.5-5.1); Protein, Total 8.2 g/dL (5.8-8.1); Sodium 138 mmol/L (136-145)
[2022-04-15] MEDS ORDERED: Lorazepam 2 MG/ML VIAL ONE (15:09)
[2022-04-15 16:29] LABS: Lactic Acid 2.8 mmol/L (0.5-2.2)
[2022-04-15 17:21] LABS: Bilirubin Neg (Negative); Blood, Urine Negative (Negative); Clarity Clear (Clear); Glucose, Urine (Dipstick) Normal (Negative); Ketone, Urine Negative (Negative); Leukocyte Negative (Negative); Nitrite Negative (Negative); Protein, Urine (Dipstick) 30 mg/dl (Neg-Trace); Urobilinogen Normal mg/dL (Less than 2)
[2022-04-15 17:34] LABS: Bacteria/HPF 1+ HPF (None Seen); RBC/HPF 0-3 HPF (0-3); Squamous Epithelial 0-3 HPF (0-3); WBC/HPF 0-3 HPF (0-3)
[2022-04-15 17:38] LABS: Troponin I Less than 0.010 ng/mL (< 0.028)
[2022-04-15] MEDS ORDERED: Sulfameth/Trimethoprim DS 800-160mg TAB ONE (18:02)
== END 2022-04-15 18:30 | disposition home or self-care (01) ==
LOC: CSHERS 12:33
DX: N30.00 Acute cystitis without hematuria (principal); R11.2 Nausea with vomiting, unspecified; F41.9 Anxiety disorder, unspecified; I10 Essential (primary) hypertension; I25.10 Atherosclerotic heart disease of native coronary artery without angina pectoris; E11.9 Type 2 diabetes mellitus without complications; Z79.899 Other long term (current) drug therapy
CPT/HCPCS: 36415; 36416; 71045; 80053; 81003; 81015; 83605; 83690; 84484; 85025; 87077; 87086; 87186; 93005; J2060

== ENCOUNTER 2022-07-01 10:49 | Emergency (ER) | payer MEDICARE, BC ==
[2022-07-01 11:22] LABS: #Basophils 0.1 10x3/uL (0.0-0.2); #Eosinphils 0.2 10x3/uL (0.0-0.5); #Monocytes 0.8 10x3/uL (0.0-1.1); #Neutrophils 4.9 10x3/uL (1.5-8.4); %Basophils 0.7 % (0.0-2.0); %Eosinophils 2.8 % (0.0-6.0); %Lymphocytes 27.2 % (18.0-47.0); %Monocytes 10.1 % (0.0-10.0); %Neutrophils 58.8 % (40.0-75.0); Hemoglobin 12.8 g/dL (12.0-15.5); Mean Corpuscular Hemoglobin 28.6 pg (27.0-33.0); Mean Corpuscular Volume 86.8 fl (81.6-98.3); Mean Platelet Volume 9.9 fl (7.4-10.4); Platelet Count 254 10x3/uL (150-450); RBC Distribution Width 15.7 % (11.5-14.5); Red Blood Cell (RBC) Count 4.47 10x6/uL (3.90-5.03); White Blood Cell (WBC) Count 8.3 10x3/uL (3.5-10.5)
[2022-07-01 11:42] LABS: ALT (SGPT) 9 U/L (8-55); AST (SGOT) 13 U/L (5-34); Alkaline Phosphatase 60 U/L (40-110); Anion Gap 17 mmol/L (10-20); BUN (Urea Nitrogen) 28 mg/dL (9.8-20.1); Bilirubin, Total 0.4 mg/dL (0.2-1.2); Calc. Creatinine Clearance 0 mL/min (70-130); Calcium 9.5 mg/dL (7.8-10.44); Carbon Dioxide 21 mmol/L (23-31); Chloride 105 mmol/L (98-107); Estimated GFR 38; Globulin 3.3 g/dL (2.4-3.5); Glucose 112 mg/dL (83-110); Potassium 4.9 mmol/L (3.5-5.1); Protein, Total 7.3 g/dL (5.8-8.1); Sodium 138 mmol/L (136-145)
[2022-07-01 12:07] LABS: SARS-CoV-2 NAA Rapid Test Not Detected (NotDetected)
[2022-07-01] MEDS ORDERED: hydrOXYzine 25 MG TAB ONE (12:30)
[2022-07-01] MEDS ORDERED: Furosemide 100 MG/10 ML VIAL ONE (14:06)
[2022-07-01 15:13] LABS: Troponin I Less than 0.010 ng/mL (< 0.028)
[2022-07-01 18:01] LABS: Troponin I 0.012 ng/mL (< 0.028)
[2022-07-01] MEDS ORDERED: Acetaminophen 650 MG Suppository PR PRN (18:02)
[2022-07-01] MEDS ORDERED: Ondansetron PF 4 MG/2 ML Vial IVP PRN (18:02)
[2022-07-01] MEDS ORDERED: Acetaminophen 325 MG TAB PO PRN (18:02)
[2022-07-01] MEDS ORDERED: Ondansetron ODT 4 MG TAB PO PRN (18:02)
[2022-07-01] MEDS ORDERED: Aspirin Chewable 81 MG TAB PO SCH (21:00)
[2022-07-02] MEDS ORDERED: Aspirin Chewable 81 MG TAB PO SCH (09:00)
== END 2022-07-01 19:27 | disposition admitted as inpatient to this hospital (09) ==
LOC: CSHERS 10:49
DX: I11.0 Hypertensive heart disease with heart failure (principal); I50.9 Heart failure, unspecified; E78.00 Pure hypercholesterolemia, unspecified; E11.9 Type 2 diabetes mellitus without complications; E66.9 Obesity, unspecified; I25.10 Atherosclerotic heart disease of native coronary artery without angina pectoris; Z20.822 Contact with and (suspected) exposure to COVID-19
CPT/HCPCS: 71045; 80053; 82962; 83880; 84484 ×2; 85025; 85379; 93005; U0002; 36415; 36416; 96374; J1940

== ENCOUNTER 2022-08-27 13:52 | Inpatient (IN) | payer MEDICARE, BC ==
[2022-08-27 14:56] LABS: SARS-CoV-2 NAA Rapid Test Not Detected (NotDetected)
[2022-08-27 15:08] LABS: #Eosinphils 0.1 10x3/uL (0.0-0.5); #Monocytes 1.1 10x3/uL (0.0-1.1); %Basophils 0.2 % (0.0-2.0); %Eosinophils 0.7 % (0.0-6.0); %Lymphocytes 12.4 % (18.0-47.0); %Monocytes 8.2 % (0.0-10.0); Hemoglobin 11.5 g/dL (12.0-15.5); Mean Corpuscular HGB CONC 32.6 g/dL (32.0-36.0); Mean Corpuscular Hemoglobin 29.8 pg (27.0-33.0); Mean Corpuscular Volume 91.5 fl (81.6-98.3); Mean Platelet Volume 9.8 fl (7.4-10.4); Platelet Count 209 10x3/uL (150-450); RBC Distribution Width 14.4 % (11.5-14.5); Red Blood Cell (RBC) Count 3.86 10x6/uL (3.90-5.03); White Blood Cell (WBC) Count 12.8 10x3/uL (3.5-10.5)
[2022-08-27 15:17] LABS: ALT (SGPT) 8 U/L (8-55); AST (SGOT) 15 U/L (5-34); Albumin 3.7 g/dL (3.4-4.8); Alkaline Phosphatase 53 U/L (40-110); Anion Gap 18 mmol/L (10-20); BUN (Urea Nitrogen) 29 mg/dL (9.8-20.1); Bilirubin, Total 0.5 mg/dL (0.2-1.2); Calc. Creatinine Clearance 0 mL/min (70-130); Carbon Dioxide 21 mmol/L (23-31); Chloride 101 mmol/L (98-107); Estimated GFR 30; Globulin 3.4 g/dL (2.4-3.5); Glucose 116 mg/dL (83-110); Potassium 4.4 mmol/L (3.5-5.1); Protein, Total 7.1 g/dL (5.8-8.1); Sodium 136 mmol/L (136-145)
[2022-08-27 15:24] LABS: Bilirubin Neg (Negative); Blood, Urine Negative (Negative); Clarity Slightly Cloudy (Clear); Glucose, Urine (Dipstick) Normal (Negative); Ketone, Urine Negative (Negative); Leukocyte Negative (Negative); Nitrite Negative (Negative); Protein, Urine (Dipstick) 30 mg/dl (Neg-Trace); Urobilinogen Normal mg/dL (Less than 2)
[2022-08-27 15:25] LABS: Bacteria/HPF Rare-Few HPF (None Seen); RBC/HPF 0-3 HPF (0-3); Squamous Epithelial None Seen HPF (0-3); WBC/HPF 0-3 HPF (0-3)
[2022-08-27 15:26] LABS: Other Microscopic Description Less than 2 mL rec'd
[2022-08-27] MEDS ORDERED: Acetaminophen 325 MG TAB ONE (15:41)
[2022-08-27] MEDS ORDERED: Vancomycin 1 GM VIAL ONE (15:41)
[2022-08-27] MEDS ORDERED: Cefepime 2 GM VIAL ONE (15:41)
[2022-08-27] MEDS ORDERED: Ondansetron PF 4 MG/2 ML Vial IVP PRN (16:31)
[2022-08-27] MEDS ORDERED: Acetaminophen 325 MG TAB PO PRN (16:31)
[2022-08-27] MEDS ORDERED: Ondansetron ODT 4 MG TAB PO PRN (16:31)
[2022-08-27] MEDS ORDERED: Sodium Chloride 0.9% 1,000 ML IV SCH (16:45)
[2022-08-27 17:58] LABS: Lactic Acid 0.8 mmol/L (0.5-2.2)
[2022-08-27] MEDS ORDERED: Vancomycin Dose by Levels Sliding Scale (Wt 71-99) FS SCH (19:15)
[2022-08-27] MEDS: clonazePAM 0.5 MG TAB PO PRN (22:07)
[2022-08-28 03:40] LABS: #Neutrophils 8.3 10x3/uL (1.5-8.4); %Basophils 0.4 % (0.0-2.0); %Lymphocytes 12.5 % (18.0-47.0); %Monocytes 9.1 % (0.0-10.0); %Neutrophils 77.4 % (40.0-75.0); Hemoglobin 9.5 g/dL (12.0-15.5); Mean Corpuscular Volume 90.9 fl (81.6-98.3); Mean Platelet Volume 10.5 fl (7.4-10.4); Platelet Count 184 10x3/uL (150-450); Red Blood Cell (RBC) Count 3.17 10x6/uL (3.90-5.03); White Blood Cell (WBC) Count 10.7 10x3/uL (3.5-10.5)
[2022-08-28 03:45] LABS: Anion Gap 15 mmol/L (10-20); BUN (Urea Nitrogen) 28 mg/dL (9.8-20.1); Calc. Creatinine Clearance 41 mL/min (70-130); Calcium 8.3 mg/dL (7.8-10.44); Carbon Dioxide 20 mmol/L (23-31); Chloride 105 mmol/L (98-107); Estimated GFR 38; Glucose 109 mg/dL (83-110); Potassium 3.8 mmol/L (3.5-5.1); Sodium 136 mmol/L (136-145)
[2022-08-28] MEDS: Cefepime 1 GM in Sodium Chloride 0.9% 100 ML IVPB SCH ×2 (03:53→17:03)
[2022-08-28] MEDS ORDERED: clonazePAM 0.5 MG TAB PO PRN (07:15)
[2022-08-28] MEDS: Escitalopram Oxalate 10 mg Tablet PO SCH (10:05)
[2022-08-28] MEDS: Amlodipine 10 MG TAB PO SCH (10:05)
[2022-08-28] MEDS: metroNIDAZOLE 500 MG in Premix Bag 1 BAG IVPB SCH ×2 (10:06→17:02)
[2022-08-28] MEDS: Aspirin 81 mg Enteric Coated Tablet PO SCH (10:06)
[2022-08-28] MEDS: Clopidogrel Bisulfate 75 MG TAB PO SCH (10:06)
[2022-08-28] MEDS: Liothyronine Sodium 5 MCG TAB PO SCH (11:10)
[2022-08-28] MEDS ORDERED: HumaLOG 300 UNITS/3 ML VIAL SC PRN ×2 (11:18)
[2022-08-28] MEDS ORDERED: Dextrose 5% in Water 1,000 ML IV PRN (11:18)
[2022-08-28] MEDS ORDERED: Dextrose 50% Abboject 50 ML SYRINGE SLOW IVP PRN (11:18)
[2022-08-28 11:49] LABS: Vancomycin, Random 7.8 ug/mL (See Comment)
[2022-08-28] MEDS ORDERED: Vancomycin HCl 1 GM in Sodium Chloride 0.9% 250 ML 250 ML IVPB SCH (12:00)
[2022-08-28] MEDS ORDERED: Furosemide 20 MG/2 ML VIAL SLOW IVP SCH (12:00)
[2022-08-28] MEDS: Ventolin HFA Inhaler 60 PUFF INHALER INH SCH ×3 (12:07→19:20)
[2022-08-28] MEDS: Albumin 25% 25 GM/100 ML BOT IVPB SCH ×2 (12:58→19:56)
[2022-08-28 15:48] LABS: Legionella Urinary Ag Negative (Negative); Strep pneumo Urine Ag NEGATIVE (NEGATIVE)
[2022-08-28] MEDS: clonazePAM 0.5 MG TAB PO PRN (21:21)
[2022-08-29] MEDS: Albumin 25% 25 GM/100 ML BOT IVPB SCH ×2 (00:51→05:54)
[2022-08-29] MEDS: Ventolin HFA Inhaler 60 PUFF INHALER INH SCH ×5 (00:58→10:09)
[2022-08-29] MEDS: metroNIDAZOLE 500 MG in Premix Bag 1 BAG IVPB SCH ×3 (01:04→18:16)
[2022-08-29 04:23] LABS: #Eosinphils 0.1 10x3/uL (0.0-0.5); #Monocytes 0.8 10x3/uL (0.0-1.1); #Neutrophils 4.9 10x3/uL (1.5-8.4); %Basophils 0.3 % (0.0-2.0); %Eosinophils 1.7 % (0.0-6.0); %Lymphocytes 16.8 % (18.0-47.0); %Neutrophils 69.8 % (40.0-75.0); Hemoglobin 9.6 g/dL (12.0-15.5); Mean Corpuscular HGB CONC 33.1 g/dL (32.0-36.0); Mean Corpuscular Volume 90.6 fl (81.6-98.3); Platelet Count 179 10x3/uL (150-450); RBC Distribution Width 13.8 % (11.5-14.5)
[2022-08-29 04:32] LABS: Anion Gap 16 mmol/L (10-20); BUN (Urea Nitrogen) 27 mg/dL (9.8-20.1); Calc. Creatinine Clearance 42 mL/min (70-130); Calcium 8.8 mg/dL (7.8-10.44); Carbon Dioxide 20 mmol/L (23-31); Chloride 107 mmol/L (98-107); Estimated GFR 40; Glucose 96 mg/dL (83-110); Magnesium 1.3 mg/dL (1.6-2.6); Potassium 3.8 mmol/L (3.5-5.1); Sodium 139 mmol/L (136-145)
[2022-08-29] MEDS: Cefepime 1 GM in Sodium Chloride 0.9% 100 ML IVPB SCH ×2 (04:44→16:07)
[2022-08-29] MEDS: Levothyroxine Sodium 112 MCG TAB PO SCH (05:55)
[2022-08-29] MEDS ORDERED: Electrolyte Replacement Protocol 1 EACH FS SCH (07:30)
[2022-08-29] MEDS ORDERED: Furosemide 40 MG/4 ML VIAL SLOW IVP SCH (09:00)
[2022-08-29] MEDS: Clopidogrel Bisulfate 75 MG TAB PO SCH (09:21)
[2022-08-29] MEDS: Amlodipine 10 MG TAB PO SCH (09:21)
[2022-08-29] MEDS: Benzonatate 100 MG CAP PO SCH ×3 (09:21→21:27)
[2022-08-29] MEDS: Liothyronine Sodium 5 MCG TAB PO SCH (09:21)
[2022-08-29] MEDS: Escitalopram Oxalate 10 mg Tablet PO SCH (09:22)
[2022-08-29] MEDS: Aspirin 81 mg Enteric Coated Tablet PO SCH (09:22)
[2022-08-29] MEDS: Magnesium 2 GM/50 ML(in water) 2 GM in Premix Bag 1 BAG IVPB SCH ×2 (09:24→11:21)
[2022-08-29] MEDS: clonazePAM 0.5 MG TAB PO PRN (15:30)
[2022-08-29 17:46] VITALS: BMI 29.7
[2022-08-30] MEDS: metroNIDAZOLE 500 MG in Premix Bag 1 BAG IVPB SCH ×3 (01:44→17:31)
[2022-08-30] MEDS: clonazePAM 0.5 MG TAB PO PRN ×2 (02:27→21:23)
[2022-08-30 04:35] LABS: #Eosinphils 0.1 10x3/uL (0.0-0.5); #Monocytes 0.8 10x3/uL (0.0-1.1); #Neutrophils 4.9 10x3/uL (1.5-8.4); %Basophils 0.3 % (0.0-2.0); %Eosinophils 1.7 % (0.0-6.0); %Lymphocytes 17.3 % (18.0-47.0); %Monocytes 10.8 % (0.0-10.0); %Neutrophils 68.8 % (40.0-75.0); Hemoglobin 9.7 g/dL (12.0-15.5); Mean Corpuscular HGB CONC 33.2 g/dL (32.0-36.0); Mean Corpuscular Hemoglobin 29.7 pg (27.0-33.0); Mean Corpuscular Volume 89.3 fl (81.6-98.3); Mean Platelet Volume 10.3 fl (7.4-10.4); Platelet Count 205 10x3/uL (150-450); RBC Distribution Width 13.7 % (11.5-14.5); Red Blood Cell (RBC) Count 3.27 10x6/uL (3.90-5.03); White Blood Cell (WBC) Count 7.1 10x3/uL (3.5-10.5)
[2022-08-30 04:43] LABS: Anion Gap 15 mmol/L (10-20); BUN (Urea Nitrogen) 33 mg/dL (9.8-20.1); Calc. Creatinine Clearance 35 mL/min (70-130); Calcium 8.8 mg/dL (7.8-10.44); Carbon Dioxide 23 mmol/L (23-31); Chloride 105 mmol/L (98-107); Estimated GFR 33; Glucose 117 mg/dL (83-110); Magnesium 1.8 mg/dL (1.6-2.6); Potassium 3.7 mmol/L (3.5-5.1); Sodium 139 mmol/L (136-145)
[2022-08-30] MEDS: Cefepime 1 GM in Sodium Chloride 0.9% 100 ML IVPB SCH ×2 (04:55→15:41)
[2022-08-30] MEDS: Levothyroxine Sodium 112 MCG TAB PO SCH (07:32)
[2022-08-30] MEDS ORDERED: Magnesium 2 GM/50 ML(in water) 2 GM in Premix Bag 1 BAG IVPB SCH (08:00)
[2022-08-30] MEDS: Liothyronine Sodium 5 MCG TAB PO SCH (09:02)
[2022-08-30] MEDS: Benzonatate 100 MG CAP PO SCH ×3 (09:02→21:23)
[2022-08-30] MEDS: Aspirin 81 mg Enteric Coated Tablet PO SCH (09:03)
[2022-08-30] MEDS: Escitalopram Oxalate 10 mg Tablet PO SCH (09:03)
[2022-08-30] MEDS: Amlodipine 10 MG TAB PO SCH (09:03)
[2022-08-30] MEDS: Clopidogrel Bisulfate 75 MG TAB PO SCH (09:03)
[2022-08-30 12:32] LABS: Hemoglobin A1c 5.7 % (4.0-6.0)
[2022-08-30] MEDS: Guaifenesin DM 100-10/5 ML UDCUP PO PRN ×2 (13:15→21:22)
[2022-08-31] MEDS: metroNIDAZOLE 500 MG in Premix Bag 1 BAG IVPB SCH ×3 (00:27→18:19)
[2022-08-31] MEDS: Cefepime 1 GM in Sodium Chloride 0.9% 100 ML IVPB SCH ×2 (02:16→16:20)
[2022-08-31 05:51] LABS: #Eosinphils 0.1 10x3/uL (0.0-0.5); #Neutrophils 4.9 10x3/uL (1.5-8.4); %Basophils 0.3 % (0.0-2.0); %Eosinophils 1.2 % (0.0-6.0); %Lymphocytes 17.5 % (18.0-47.0); %Monocytes 13.4 % (0.0-10.0); %Neutrophils 66.1 % (40.0-75.0); Hemoglobin 9.9 g/dL (12.0-15.5); Mean Corpuscular HGB CONC 33.2 g/dL (32.0-36.0); Mean Corpuscular Hemoglobin 29.6 pg (27.0-33.0); Platelet Count 229 10x3/uL (150-450); RBC Distribution Width 13.8 % (11.5-14.5); Red Blood Cell (RBC) Count 3.35 10x6/uL (3.90-5.03); White Blood Cell (WBC) Count 7.4 10x3/uL (3.5-10.5)
[2022-08-31 05:56] LABS: Anion Gap 14 mmol/L (10-20); BUN (Urea Nitrogen) 25 mg/dL (9.8-20.1); Calc. Creatinine Clearance 47 mL/min (70-130); Calcium 8.8 mg/dL (7.8-10.44); Carbon Dioxide 24 mmol/L (23-31); Chloride 105 mmol/L (98-107); Estimated GFR 46; Glucose 108 mg/dL (83-110); Potassium 3.7 mmol/L (3.5-5.1); Sodium 139 mmol/L (136-145)
[2022-08-31] MEDS: Levothyroxine Sodium 112 MCG TAB PO SCH (06:08)
[2022-08-31] MEDS ORDERED: Magnesium 2 GM/50 ML(in water) 2 GM in Premix Bag 1 BAG IVPB SCH (08:00)
[2022-08-31] MEDS: Benzonatate 100 MG CAP PO SCH ×3 (08:15→20:59)
[2022-08-31] MEDS: Amlodipine 10 MG TAB PO SCH (08:15)
[2022-08-31] MEDS: Escitalopram Oxalate 10 mg Tablet PO SCH (08:16)
[2022-08-31] MEDS: Clopidogrel Bisulfate 75 MG TAB PO SCH (08:16)
[2022-08-31] MEDS: Aspirin 81 mg Enteric Coated Tablet PO SCH (08:16)
[2022-08-31] MEDS: Liothyronine Sodium 5 MCG TAB PO SCH (12:28)
[2022-09-01] MEDS: metroNIDAZOLE 500 MG in Premix Bag 1 BAG IVPB SCH ×3 (00:11→18:06)
[2022-09-01] MEDS: Cefepime 1 GM in Sodium Chloride 0.9% 100 ML IVPB SCH ×2 (03:23→17:08)
[2022-09-01 04:09] LABS: #Eosinphils 0.1 10x3/uL (0.0-0.5); #Monocytes 1.1 10x3/uL (0.0-1.1); #Neutrophils 5.3 10x3/uL (1.5-8.4); %Basophils 0.4 % (0.0-2.0); %Lymphocytes 18.7 % (18.0-47.0); %Neutrophils 64.3 % (40.0-75.0); Hemoglobin 9.6 g/dL (12.0-15.5); Mean Corpuscular HGB CONC 33.3 g/dL (32.0-36.0); Mean Corpuscular Hemoglobin 29.4 pg (27.0-33.0); Mean Corpuscular Volume 88.3 fl (81.6-98.3); Mean Platelet Volume 10.1 fl (7.4-10.4); Platelet Count 223 10x3/uL (150-450); RBC Distribution Width 13.8 % (11.5-14.5); Red Blood Cell (RBC) Count 3.26 10x6/uL (3.90-5.03); White Blood Cell (WBC) Count 8.2 10x3/uL (3.5-10.5)
[2022-09-01 04:15] LABS: Anion Gap 15 mmol/L (10-20); BUN (Urea Nitrogen) 20 mg/dL (9.8-20.1); Calc. Creatinine Clearance 51 mL/min (70-130); Calcium 8.6 mg/dL (7.8-10.44); Carbon Dioxide 23 mmol/L (23-31); Chloride 105 mmol/L (98-107); Estimated GFR 51; Glucose 123 mg/dL (83-110); Magnesium 1.8 mg/dL (1.6-2.6); Potassium 3.7 mmol/L (3.5-5.1); Sodium 139 mmol/L (136-145)
[2022-09-01] MEDS: Levothyroxine Sodium 112 MCG TAB PO SCH (06:10)
[2022-09-01] MEDS: Liothyronine Sodium 5 MCG TAB PO SCH (06:10)
[2022-09-01] MEDS: Benzonatate 100 MG CAP PO SCH ×4 (08:06→21:37)
[2022-09-01] MEDS: Amlodipine 10 MG TAB PO SCH (08:06)
[2022-09-01] MEDS: Clopidogrel Bisulfate 75 MG TAB PO SCH (08:06)
[2022-09-01] MEDS: Escitalopram Oxalate 10 mg Tablet PO SCH (08:06)
[2022-09-01] MEDS: Aspirin 81 mg Enteric Coated Tablet PO SCH (08:06)
[2022-09-01] MEDS ORDERED: Furosemide 20 MG/2 ML VIAL SLOW IVP SCH (16:45)
[2022-09-01] MEDS: Doxycycline 100 MG CAP PO SCH (21:35)
[2022-09-02] MEDS: metroNIDAZOLE 500 MG in Premix Bag 1 BAG IVPB SCH ×3 (00:40→18:13)
[2022-09-02] MEDS: Cefepime 1 GM in Sodium Chloride 0.9% 100 ML IVPB SCH ×2 (04:03→15:39)
[2022-09-02] MEDS: Liothyronine Sodium 5 MCG TAB PO SCH (05:55)
[2022-09-02] MEDS: Levothyroxine Sodium 112 MCG TAB PO SCH (05:55)
[2022-09-02] MEDS: Furosemide 20 MG/2 ML VIAL SLOW IVP SCH ×2 (06:14→15:38)
[2022-09-02 06:27] LABS: Anion Gap 16 mmol/L (10-20); BUN (Urea Nitrogen) 23 mg/dL (9.8-20.1); Calc. Creatinine Clearance 49 mL/min (70-130); Calcium 9.2 mg/dL (7.8-10.44); Carbon Dioxide 23 mmol/L (23-31); Chloride 102 mmol/L (98-107); Estimated GFR 49; Glucose 116 mg/dL (83-110); Magnesium 1.6 mg/dL (1.6-2.6); Potassium 3.9 mmol/L (3.5-5.1); Sodium 137 mmol/L (136-145)
[2022-09-02 07:19] LABS: #Eosinphils 0.1 10x3/uL (0.0-0.5); #Monocytes 1.1 10x3/uL (0.0-1.1); #Neutrophils 4.9 10x3/uL (1.5-8.4); %Basophils 0.5 % (0.0-2.0); %Eosinophils 1.7 % (0.0-6.0); %Lymphocytes 20.3 % (18.0-47.0); %Monocytes 14.1 % (0.0-10.0); %Neutrophils 60.8 % (40.0-75.0); Hemoglobin 10.8 g/dL (12.0-15.5); Mean Corpuscular HGB CONC 33.4 g/dL (32.0-36.0); Mean Corpuscular Hemoglobin 29.7 pg (27.0-33.0); Mean Corpuscular Volume 88.7 fl (81.6-98.3); Mean Platelet Volume 9.9 fl (7.4-10.4); Platelet Count 259 10x3/uL (150-450); RBC Distribution Width 13.8 % (11.5-14.5); Red Blood Cell (RBC) Count 3.64 10x6/uL (3.90-5.03); White Blood Cell (WBC) Count 8.1 10x3/uL (3.5-10.5)
[2022-09-02] MEDS: Amlodipine 10 MG TAB PO SCH (09:53)
[2022-09-02] MEDS: Clopidogrel Bisulfate 75 MG TAB PO SCH (09:54)
[2022-09-02] MEDS: Aspirin 81 mg Enteric Coated Tablet PO SCH (09:54)
[2022-09-02] MEDS: Escitalopram Oxalate 10 mg Tablet PO SCH (09:55)
[2022-09-02] MEDS: Benzonatate 100 MG CAP PO SCH ×2 (09:56→20:26)
[2022-09-02] MEDS: Doxycycline 100 MG CAP PO SCH ×2 (09:56→20:26)
[2022-09-03] MEDS: metroNIDAZOLE 500 MG in Premix Bag 1 BAG IVPB SCH (00:46)
[2022-09-03] MEDS: Cefepime 1 GM in Sodium Chloride 0.9% 100 ML IVPB SCH (04:38)
[2022-09-03 05:42] LABS: Anion Gap 14 mmol/L (10-20); BUN (Urea Nitrogen) 25 mg/dL (9.8-20.1); Calc. Creatinine Clearance 43 mL/min (70-130); Calcium 8.8 mg/dL (7.8-10.44); Carbon Dioxide 26 mmol/L (23-31); Chloride 101 mmol/L (98-107); Estimated GFR 42; Glucose 126 mg/dL (83-110); Magnesium 1.4 mg/dL (1.6-2.6); Potassium 3.3 mmol/L (3.5-5.1); Sodium 138 mmol/L (136-145)
[2022-09-03] MEDS: Levothyroxine Sodium 112 MCG TAB PO SCH (06:03)
[2022-09-03] MEDS: Furosemide 20 MG/2 ML VIAL SLOW IVP SCH (06:03)
[2022-09-03] MEDS: Liothyronine Sodium 5 MCG TAB PO SCH (06:03)
[2022-09-03 06:05] LABS: #Eosinphils 0.2 10x3/uL (0.0-0.5); #Monocytes 1.1 10x3/uL (0.0-1.1); #Neutrophils 5.5 10x3/uL (1.5-8.4); %Basophils 0.4 % (0.0-2.0); %Eosinophils 1.9 % (0.0-6.0); %Lymphocytes 17.2 % (18.0-47.0); %Monocytes 13.1 % (0.0-10.0); %Neutrophils 63.7 % (40.0-75.0); Mean Corpuscular HGB CONC 33.9 g/dL (32.0-36.0); Mean Corpuscular Hemoglobin 29.9 pg (27.0-33.0); Mean Corpuscular Volume 88.1 fl (81.6-98.3); Mean Platelet Volume 9.6 fl (7.4-10.4); Platelet Count 298 10x3/uL (150-450); RBC Distribution Width 13.5 % (11.5-14.5); Red Blood Cell (RBC) Count 3.35 10x6/uL (3.90-5.03); White Blood Cell (WBC) Count 8.6 10x3/uL (3.5-10.5)
[2022-09-03] MEDS: Magnesium 2 GM/50 ML(in water) 2 GM in Premix Bag 1 BAG IVPB SCH ×2 (10:00→10:09)
[2022-09-03] MEDS: Benzonatate 100 MG CAP PO SCH (10:08)
[2022-09-03] MEDS: Amlodipine 10 MG TAB PO SCH (10:08)
[2022-09-03] MEDS: Clopidogrel Bisulfate 75 MG TAB PO SCH (10:09)
[2022-09-03] MEDS: Escitalopram Oxalate 10 mg Tablet PO SCH (10:09)
[2022-09-03] MEDS: Aspirin 81 mg Enteric Coated Tablet PO SCH (10:09)
[2022-09-03] MEDS: Potassium Chloride 20 MEQ in Premix Bag 1 BAG IVPB SCH ×2 (10:10→11:00)
[2022-09-03 13:33] VITALS: BP 151/67; TEMP 97.5
== END 2022-09-03 15:00 | DRG 871 ==
LOC: CSHERS 13:52 → CSHTELE 17:25
PROVIDERS: ADMIT Family Medicine; ATTEND Internal Medicine
PROC: 3E03329 Introduction of Other Anti-infective into Peripheral Vein, Percutaneous Approach (ICD-10-PCS; principal; 2022-08-27)
PROC: 30233J1 Transfusion of Nonautologous Serum Albumin into Peripheral Vein, Percutaneous Approach (ICD-10-PCS; 2022-08-28)
DX: A41.9 Sepsis, unspecified organism (principal); G93.41 Metabolic encephalopathy; J18.9 Pneumonia, unspecified organism; J96.01 Acute respiratory failure with hypoxia; J90 Pleural effusion, not elsewhere classified; J81.1 Chronic pulmonary edema; E11.65 Type 2 diabetes mellitus with hyperglycemia; G25.0 Essential tremor; I25.10 Atherosclerotic heart disease of native coronary artery without angina pectoris; I10 Essential (primary) hypertension; Z20.822 Contact with and (suspected) exposure to COVID-19; I65.29 Occlusion and stenosis of unspecified carotid artery; E87.70 Fluid overload, unspecified; F03.90 Unspecified dementia, unspecified severity, without behavioral disturbance, psychotic disturbance, mood disturbance, and anxiety; Z88.1 Allergy status to other antibiotic agents; Z88.5 Allergy status to narcotic agent; Z88.0 Allergy status to penicillin; Z91.09 Other allergy status, other than to drugs and biological substances; Z79.82 Long term (current) use of aspirin; Z79.899 Other long term (current) drug therapy; Z95.1 Presence of aortocoronary bypass graft; Z95.0 Presence of cardiac pacemaker; Z85.3 Personal history of malignant neoplasm of breast; Z95.5 Presence of coronary angioplasty implant and graft; Z90.710 Acquired absence of both cervix and uterus; Z90.49 Acquired absence of other specified parts of digestive tract; Z98.890 Other specified postprocedural states
CPT/HCPCS: 36415; 36416; 70450; 71045; 71250; 80048; 80053; 80202; 81003; 81015; 83036; 83605; 83735; 83880; 85025; 87040; 87070; 87081; 87205; 87449; 87899; 93005; 93010; 93306; 94640; 94664; 94667; 94668; 94760; 94762; 96361; 96365; 96366; 96367; J0692; J1650; J1940; J3370; J3475; J3480; J3490; J7050; J7611; P9047